=== PATIENT | female | born 1955 | race Caucasian/White ===

== ENCOUNTER 2021-06-22 08:10 | Outpatient (CLI) | payer MEDICARE, SELFPAY ==
--- NOTE | ~2021-06-22 | MR_ITS ---
EXAMINATION: MR knee LT wo con DATE: 06/22/2021 10:10 INDICATION: Left knee pain TECHNIQUE: Magnetic resonance imaging (MRI) of the left knee was performed without intravenous contra st. Sequences included coronal PD-weighted FSE, coronal PD-weighted FS FSE, sagittal T2-weighted FSE , sagittal PD-weighted FS FSE and axial PD weighted fat saturated FSE. COMPARISON: None. FINDINGS: Medial compartment: Medial meniscus is normal. Chondral ulceration and deep fissuring with mild underlying cortical irreg ularity and small foci of increased subarticular marrow signal at the medial half of the central to p osterior weightbearing medial femoral condyle. Lateral compartment: Lateral meniscus is normal. Articular cartilage is normal. Patellofemoral compartment: Partial-thickness cartilage loss with mild chondral surface irregularity along the patellar apical ri dge and inferior aspect of the medial trochlea. Ligaments and tendons: Posterior cruciate ligament is normal. Likely mucoid degeneration of the anterior cruciate ligament w hich appears thickened with diffuse mild increased signal. The ligament fibers appear somewhat indist inct but intact maintaining a normal angle relative to the Blumensaat's line. The medial collateral l igament and fibular collateral ligament complex are normal. Small enthesophytes at the patellar inser tion of the otherwise normal quadriceps tendon. Patellar tendon is normal. The visualized medial and lateral hamstring tendons as well as the iliotibial band are normal. Fluid: Physiologic amount of fluid in the joint space. No loose osteochondral bodies identified. Osseous/other: No fracture or abnormal marrow replacing process. Mild edema and cystic change along the anterior int ercondylar eminence of the footplate of the anterior cruciate ligament. Additional mild cystic change at the posterior root of the medial meniscus. IMPRESSION: 1. Mild medial and patellofemoral osteoarthritis with region of high-grade chondromalacia along the w eightbearing medial femoral condyle. 2. Mucoid degeneration without discrete tear of the anterior cruciate ligament. Reviewed, dictated and finalized at location B. INUM SMITH IMPRESSION: 1. Mild medial and patellofemoral osteoarthritis with region of high-grade janelle dromalacia along the weightbearing medial femoral condyle. 2. Mucoid degeneration without discrete tear of the anterior cruciate ligament.
== END 2021-06-22 08:11 ==
PROVIDERS: PCP Family Medicine; Visit Provider Orthopaedic Surgery
DX: M17.12 Unilateral primary osteoarthritis, left knee (principal)
CPT/HCPCS: 73721

== ENCOUNTER 2022-05-26 13:24 | Emergency (ER) | payer MEDICARE, SELFPAY ==
--- NOTE | ~2022-05-26 | XR_ITS ---
EXAMINATION: XR hip LT min 2V INDICATION: Left hip pain TECHNIQUE: Three views of the left hip are obtained. COMPARISON: None available FINDINGS: Soft tissue swelling overlies the hip. Bone alignment is normal. There is no fracture. Ther e is moderate osteoarthritis of the hip. A surgical anastomosis is noted in the left midabdomen. Ther e is moderate to severe lumbar spondylosis. Calcified atherosclerosis is noted. IMPRESSION: 1. No acute osseous abnormality. Reviewed, dictated and finalized at location B. LEASE OPERATOR
--- NOTE | ~2022-05-26 | XR_ITS ---
EXAMINATION: XR ribs LT 2V INDICATION: Left-sided chest pain TECHNIQUE: 3 views of the left ribs were obtained. COMPARISON: 01/18/2010 FINDINGS: No displaced rib fracture is identified. The visualized portions of the left hemithorax are unremarkable. There is moderate osteoarthritis of the shoulder. There is moderate to severe cervical spondylosis. There appears to be a right breast implant. IMPRESSION: 1. No evidence of displaced rib fracture. Reviewed, dictated and finalized at location B. TRY TRIMMER
--- NOTE | ~2022-05-26 | XR_ITS ---
EXAMINATION:XR cervical spine 4-5V DATE: 05/26/2022 14:44 INDICATION: Neck pain TECHNIQUE: AP, lateral, lateral swimmers and odontoid views of the cervical spine are provided. COMPARISON: None FINDINGS: Alignment is normal. The odontoid is intact. No fracture is identified. The vertebral body heights are maintained. There is moderate loss of intervertebral disc space height at C5-6 and C6-7. There is severe multilevel facet and uncovertebral joint osteoarthritis. Prevertebral soft tissues ar e normal. IMPRESSION: 1. Moderate to severe cervical spondylosis without acute findings. Reviewed, dictated and finalized at location B. TRIC POWER SUPERINTENDENT
[2022-05-26 13:32] VITALS: BP 123/73; PULSE 78; RESP 18; TEMP 36.4; O2SAT 99
--- NOTE | 2022-05-26 14:07 | ED.FALL ---
HPI - Fall General Chief Complaint: Fall Stated Complaint: injuries from fall Time Seen by Provider: 05/26/22 14:19 Source: patient Mode of arrival: ambulatory Limitations: no limitations History of Present Illness HPI Narrative: 66-year-old female presented for complaints of pain to multiple sites after fall last night around 1900. States he was walking up porch steps when she fell backwards, stating her back struck a wooden porch and she hit her left side on concrete and gravel. She denies hitting her head or loss of consciousness. She denies dizziness prior to the fall. She is unsure of the mechanism of fall, stating she has chronic left knee pain and it may have given out. She currently endorses neck pain, left shoulder pain, mid left back pain and left hip pain. Pain worse with movements and deep breaths. Reports abrasion/bruising to left mid back. She denies decreased range of motion to neck or extremities, numbness, tingling, weakness of upper or lower extremities. Denies headache, vision changes, nausea/vomiting, increased confusion or dizziness. She usually walks with a cane, but did not have a cane when she fell, and her hands were full of groceries. She has taken Motrin and Tylenol for symptoms. Hx DM, CAD/PTCI, HTN, HLD, dementia, TIA, anxiety, depression. Related Data Home Medications Medication Instructions Recorded Confirmed albuterol sulfate 90 mcg/actuation 1 inh inhalation Q4H 05/10/21 05/26/22 aerosol inhaler alprazolam 1 mg tablet 1 mg PO DAILY 05/10/21 05/26/22 amlodipine 5 mg tablet 5 mg PO DAILY 05/10/21 05/26/22 apixaban 5 mg tablet 5 mg PO BID 05/10/21 05/26/22 atorvastatin 40 mg tablet 40 mg PO DAILY 05/10/21 05/26/22 bisacodyl 5 mg tablet 5 mg PO BID 05/10/21 08/15/21 blood sugar diagnostic (OneTouch 05/10/21 08/15/21 Ultra Test strips) budesonide 0.5 mg/2 mL suspension 0.5 mg inhalation DAILY 05/10/21 05/26/22 for nebulization bupropion HCl 75 mg tablet 75 mg PO DAILY 05/10/21 05/26/22 calcium carbonate 600 mg calcium 600 mg PO DAILY 05/10/21 05/26/22 (1,500 mg) tablet cyanocobalamin (vitamin B-12) 500 500 mcg PO DAILY 05/10/21 05/26/22 mcg tablet dicyclomine 10 mg capsule 10 mg PO TID PRN Stomach Upset 05/10/21 05/26/22 docusate sodium 100 mg capsule 100 mg PO DAILY 05/10/21 05/26/22 donepezil 10 mg tablet 10 mg PO QHS 05/10/21 05/26/22 ferrous sulfate 325 mg (65 mg 325 mg PO DAILY 05/10/21 05/26/22 iron) tablet fluticasone propionate 50 1 spray intranasal DAILY 05/10/21 05/26/22 mcg/actuation nasal spray,suspension hydrocodone 7.5 mg-acetaminophen 15 ml PO Q6H PRN Pain 05/10/21 05/26/22 325 mg/15 mL oral solution lancets 30 gauge (Pure Comfort 05/10/21 08/15/21 Safety Lancets) memantine 10 mg tablet 10 mg PO BID 05/10/21 05/26/22 metformin 500 mg tablet 500 mg PO BID 05/10/21 05/26/22 multivitamin 1 tablet PO DAILY 05/10/21 05/26/22 pantoprazole 40 mg tablet,delayed 40 mg PO QAM 05/10/21 05/26/22 release pirbuterol 200 mcg/Inhalation mcg inhalation 05/10/21 08/15/21 breath activated aerosol sertraline 50 mg tablet (Zoloft) 50 mg PO TID 05/10/21 05/26/22 topiramate 50 mg tablet 50 mg PO DAILY 05/10/21 05/26/22 clopidogrel 75 mg tablet 75 mg PO DAILY 05/26/22 05/26/22 Allergies Allergy/AdvReac Type Severity Reaction Status Date / Time Quinolones Allergy Mild Rash Verified 05/26/22 14:17 ciprofloxacin Allergy Unknown UNKNOWN Verified 05/26/22 14:17 CIPROFLOXACIN HCL Allergy Unknown UNKNOWN Uncoded 05/26/22 14:17 Review of Systems Review of Systems: CONSTITUTIONAL: Denies body aches, fever, chills, or sweats. EYES: Denies visual changes, redness, or discharge. ENT: Denies rhinorrhea, epistaxis, sore throat, or otalgia. CARDIOVASCULAR: Denies chest pain, palpitations, or edema. RESPIRATORY: Denies dyspnea. GASTROINTESTINAL: Denies abdominal pain, nausea, vomiting, or diarrhea. SKIN: Denies rash, or open wounds. MUSCULOSKELETAL: per HPI NEUROLOGIC: Denies headac
== END 2022-05-26 15:45 | disposition home or self-care (01) ==
PROVIDERS: Emergency Provider Nurse Practitioner Family; PCP Family Medicine
DX: M54.2 Cervicalgia (principal); M25.512 Pain in left shoulder; M54.6 Pain in thoracic spine; M25.552 Pain in left hip; G89.29 Other chronic pain; M25.562 Pain in left knee; E11.9 Type 2 diabetes mellitus without complications; I10 Essential (primary) hypertension; I25.10 Atherosclerotic heart disease of native coronary artery without angina pectoris; E78.5 Hyperlipidemia, unspecified; F41.9 Anxiety disorder, unspecified; F32.9 Major depressive disorder, single episode, unspecified; F03.90 Unspecified dementia, unspecified severity, without behavioral disturbance, psychotic disturbance, mood disturbance, and anxiety; Z79.891 Long term (current) use of opiate analgesic; Z79.01 Long term (current) use of anticoagulants; W10.9XXA Fall (on) (from) unspecified stairs and steps, initial encounter
CPT/HCPCS: 71100; 72050; 73502; 99214; G0463

== ENCOUNTER 2022-06-10 08:26 | Emergency (ER) | payer MEDICARE, SELFPAY ==
--- NOTE | ~2022-06-10 | XR_ITS ---
XR chest 2V DATE: 06/10/2022 09:13 INDICATION: Cough, congestion, wheezing TECHNIQUE: 2 views COMPARISON: 01/18/2010 PA and lateral chest FINDINGS: Normal heart size. No hilar or mediastinal enlargement. No pulmonary infiltrate or consolidation, pleural effusion or pulmonary vascular congestion or pneumo thorax is detected. Osteopenia. Degenerative spurring of the lower thoracic spine. IMPRESSION: No active cardiopulmonary disease Reviewed, dictated and finalized at location A. SHING OPERATOR
[2022-06-10 08:30] VITALS: BP 124/62; PULSE 96; RESP 18; TEMP 36.6; O2SAT 99
--- NOTE | 2022-06-10 09:02 | ED.URI ---
HPI - URI/Sore Throat General Chief Complaint: Upper Respiratory Infection Stated Complaint: upper respiratory Time Seen by Provider: 06/10/22 09:02 Source: patient, RN notes reviewed and old records reviewed Mode of arrival: ambulatory Limitations: no limitations History of Present Illness HPI Narrative: 66-year-old female who presents to [facility] with complaints of 1 week duration of cough congestion some ear pain with expectoration of yellow mucus. Patient reports she has been taking DayQuil and NyQuil and diabetic cough syrup. Patient reports that she does have some shortness of breath and pain to chest when coughing. Patient does have history of asthma and has been using her nebulizer and inhaler as ordered. Patient denies any recent fevers MD elicited complaint: cough and other (ear pain, chest congestion) Pertinent past history: asthma Onset (ago): week(s) (1) Pain scale (0-10): 4 Treatments prior to arrival: cold medicine and other (Diabetic cough medicine) Related Data Home Medications Medication Instructions Recorded Confirmed albuterol sulfate 90 mcg/actuation 1 inh inhalation Q4H 05/10/21 06/10/22 aerosol inhaler alprazolam 1 mg tablet 1 mg PO DAILY 05/10/21 06/10/22 amlodipine 5 mg tablet 5 mg PO DAILY 05/10/21 06/10/22 apixaban 5 mg tablet 5 mg PO BID 05/10/21 06/10/22 atorvastatin 40 mg tablet 40 mg PO DAILY 05/10/21 06/10/22 bisacodyl 5 mg tablet 5 mg PO BID 05/10/21 06/10/22 blood sugar diagnostic (OneTouch 05/10/21 06/10/22 Ultra Test strips) budesonide 0.5 mg/2 mL suspension 0.5 mg inhalation DAILY 05/10/21 06/10/22 for nebulization bupropion HCl 75 mg tablet 75 mg PO DAILY 05/10/21 06/10/22 calcium carbonate 600 mg calcium 600 mg PO DAILY 05/10/21 06/10/22 (1,500 mg) tablet cyanocobalamin (vitamin B-12) 500 500 mcg PO DAILY 05/10/21 06/10/22 mcg tablet dicyclomine 10 mg capsule 10 mg PO TID PRN Stomach Upset 05/10/21 06/10/22 docusate sodium 100 mg capsule 100 mg PO DAILY 05/10/21 06/10/22 donepezil 10 mg tablet 10 mg PO QHS 05/10/21 06/10/22 ferrous sulfate 325 mg (65 mg 325 mg PO DAILY 05/10/21 06/10/22 iron) tablet fluticasone propionate 50 1 spray intranasal DAILY 05/10/21 06/10/22 mcg/actuation nasal spray,suspension hydrocodone 7.5 mg-acetaminophen 15 ml PO Q6H PRN Pain 05/10/21 06/10/22 325 mg/15 mL oral solution lancets 30 gauge (Pure Comfort 05/10/21 06/10/22 Safety Lancets) memantine 10 mg tablet 10 mg PO BID 05/10/21 06/10/22 metformin 500 mg tablet 500 mg PO BID 05/10/21 06/10/22 multivitamin 1 tablet PO DAILY 05/10/21 06/10/22 pantoprazole 40 mg tablet,delayed 40 mg PO QAM 05/10/21 06/10/22 release pirbuterol 200 mcg/Inhalation 200 mcg inhalation Q4-6H 05/10/21 06/10/22 breath activated aerosol sertraline 50 mg tablet (Zoloft) 50 mg PO TID 05/10/21 06/10/22 topiramate 50 mg tablet 50 mg PO DAILY 05/10/21 06/10/22 clopidogrel 75 mg tablet 75 mg PO DAILY 05/26/22 06/10/22 Allergies Allergy/AdvReac Type Severity Reaction Status Date / Time Quinolones Allergy Mild Rash Verified 06/10/22 08:50 ciprofloxacin Allergy Unknown UNKNOWN Verified 06/10/22 08:50 Review of Systems Review of Systems: CONSTITUTIONAL: Report malaise, chills, sweats, no present fever. EYES: Denies visual changes, redness, or discharge. ENT: Reports rhinorrhea, congestion, sinus pain, otalgia no sore throat. CARDIOVASCULAR: Denies chest pain, palpitations, or edema. RESPIRATORY: Reports cough.?reports some dyspnea with exertion and cough and some chest discomfort with cough. GASTROINTESTINAL: Denies abdominal pain, nausea, vomiting, diarrhea SKIN: Denies rash or itching. MUSCULOSKELETAL: Denies myalgia. NEUROLOGIC: Denies headache. All systems reviewed & are unremarkable except as noted in HPI and below PMFSH Past Medical History Medical History Acid reflux Anxiety Alfonso's palsy Blurred vision Cancer of right
== END 2022-06-10 10:00 | disposition home or self-care (01) ==
PROVIDERS: Emergency Provider Registered Nurse; PCP Family Medicine
DX: J06.9 Acute upper respiratory infection, unspecified (principal); H66.92 Otitis media, unspecified, left ear; E11.9 Type 2 diabetes mellitus without complications; I10 Essential (primary) hypertension; Z86.73 Personal history of transient ischemic attack (TIA), and cerebral infarction without residual deficits; Z79.891 Long term (current) use of opiate analgesic; Z79.84 Long term (current) use of oral hypoglycemic drugs
CPT/HCPCS: 71046; 99213; G0463

== ENCOUNTER 2022-12-18 09:45 | Emergency (ER) | payer MEDICARE, SELFPAY ==
--- NOTE | ~2022-12-18 | XR_ITS ---
XR wrist LT min 3V DATE: 12/18/2022 10:02 INDICATION: Radial wrist pain for 3 days after lifting a heavy object TECHNIQUE: 4 views COMPARISON: None FINDINGS: There is diffuse osteopenia. There is prominent osteoarthritic change at the first carpometacarpal joint. No fracture or dislocation, periosteal reaction or bone destruction. No erosive change or chondrocalc inosis. IMPRESSION: Osteopenia Prominent osteoarthritic change at the first carpometacarpal joint No fracture or dislocation Reviewed, dictated and finalized at location A.
--- NOTE | 2022-12-18 09:50 | ED.GENADULT ---
HPI - General Adult General Chief complaint: Extremity Injury, Upper Stated complaint: rt wrist injury Time Seen by Provider: 12/18/22 09:50 Source: patient, RN notes reviewed and old records reviewed Mode of arrival: ambulatory Limitations: no limitations History of Present Illness HPI narrative: 67 year old female accompanied by family member presents to express care with complaints of left wrist/lower forearm pain and swelling with bruising noted since Sunday when she lifted heavy Box at [facility]. Patient reports that she has applied ice to area at intervals and she has some pain with use of left wrist area. Patient has several bruises on her left forearm states she doesn't know if any of the bruises are from when she lifted the box. Patient reports that she heard a pop when she lifted the box and rates her pain 5-6/10.Patient does have noted swelling to the left wrist and base of thumb region with full mobility noted, circulation and sensation is intact. MD complaint: left wrist pain and injury Onset (ago): day(s) (3 day duration) Location: right and upper extremity (wrist) Severity scale (1-10): 6 Treatments prior to arrival: cold therapy Related Data Home Medications Medication Instructions Recorded Confirmed albuterol sulfate 90 mcg/actuation 1 inh inhalation Q4H 05/10/21 12/18/22 aerosol inhaler alprazolam 1 mg tablet 1 mg PO DAILY 05/10/21 12/18/22 amlodipine 5 mg tablet 5 mg PO DAILY 05/10/21 12/18/22 apixaban 5 mg tablet 5 mg PO BID 05/10/21 12/18/22 atorvastatin 40 mg tablet 40 mg PO DAILY 05/10/21 12/18/22 bisacodyl 5 mg tablet 5 mg PO BID 05/10/21 12/18/22 blood sugar diagnostic (OneTouch 05/10/21 06/10/22 Ultra Test strips) budesonide 0.5 mg/2 mL suspension 0.5 mg inhalation DAILY 05/10/21 12/18/22 for nebulization calcium carbonate 600 mg calcium 600 mg PO DAILY 05/10/21 12/18/22 (1,500 mg) tablet cyanocobalamin (vitamin B-12) 500 500 mcg PO DAILY 05/10/21 12/18/22 mcg tablet dicyclomine 10 mg capsule 10 mg PO TID PRN Stomach Upset 05/10/21 12/18/22 docusate sodium 100 mg capsule 100 mg PO DAILY 05/10/21 12/18/22 donepezil 10 mg tablet 10 mg PO QHS 05/10/21 12/18/22 fluticasone propionate 50 1 spray intranasal DAILY 05/10/21 12/18/22 mcg/actuation nasal spray,suspension hydrocodone 7.5 mg-acetaminophen 15 ml PO Q6H PRN Pain 05/10/21 12/18/22 325 mg/15 mL oral solution lancets 30 gauge (Pure Comfort 05/10/21 06/10/22 Safety Lancets) memantine 10 mg tablet 10 mg PO BID 05/10/21 12/18/22 metformin 500 mg tablet 500 mg PO BID 05/10/21 12/18/22 multivitamin 1 tablet PO DAILY 05/10/21 12/18/22 pantoprazole 40 mg tablet,delayed 40 mg PO QAM 05/10/21 12/18/22 release topiramate 50 mg tablet 50 mg PO DAILY 05/10/21 12/18/22 clopidogrel 75 mg tablet 75 mg PO DAILY 05/26/22 12/18/22 ascorbic acid 7.5 mg-vit E 7.5 2 tablet PO DAILY 12/18/22 12/18/22 unit-biotin 1,250 mcg chewable tablet ipratropium 0.5 mg-albuterol 3 mg 3 ml inhalation QID PRN Wheezing 12/18/22 12/18/22 (2.5 mg base)/3 mL nebulization soln naloxone 4 mg/actuation nasal spray 4 mg intranasal Q3M PRN Opioid 12/18/22 12/18/22 Reversal pirbuterol 200 mcg/Inhalation 200 mcg inhalation Q4H 12/18/22 12/18/22 breath activated aerosol triamcinolone acetonide 0.1 % 1 applic topical BID 12/18/22 12/18/22 topical cream Allergies Allergy/AdvReac Type Severity Reaction Status Date / Time Quinolones Allergy Mild Rash Verified 12/18/22 09:50 ciprofloxacin Allergy Unknown UNKNOWN Verified 12/18/22 09:50 Review of Systems Review of Systems: CONSTITUTIONAL: Denies fever, chills, or sweats. EYES: Denies visual changes, redness, or discharge. ENT: Denies rhinorrhea, congestion, sore throat, or otalgia. CARDIOVASCULAR: Denies chest pain, palpitations, or edema. RESPIRATORY: Denies cough or dyspnea. GASTROINTESTINAL: Denies abdominal pain, nausea, vomiting, or diarrhea. GENITOURINARY: Denies dysuria or hematuria. SKIN: Denie
[2022-12-18 09:54] VITALS: BP 95/64; PULSE 79; RESP 16; TEMP 36.3; O2SAT 98
[2022-12-18 10:03] VITALS: BP 95/64; PULSE 79; RESP 16; TEMP 36.3; O2SAT 98
== END 2022-12-18 10:21 | disposition home or self-care (01) ==
PROVIDERS: Emergency Provider Registered Nurse; PCP Family Medicine
DX: S63.502A Unspecified sprain of left wrist, initial encounter (principal); S66.912A Strain of unspecified muscle, fascia and tendon at wrist and hand level, left hand, initial encounter; X50.0XXA Overexertion from strenuous movement or load, initial encounter; K21.9 Gastro-esophageal reflux disease without esophagitis; E11.9 Type 2 diabetes mellitus without complications; I10 Essential (primary) hypertension; F41.9 Anxiety disorder, unspecified; Z85.3 Personal history of malignant neoplasm of breast; Z86.73 Personal history of transient ischemic attack (TIA), and cerebral infarction without residual deficits; Z79.84 Long term (current) use of oral hypoglycemic drugs
CPT/HCPCS: 73110; 99213; G0463